=== PATIENT | male | born 1950 ===

== ENCOUNTER 2024-06-29 08:36 | Inpatient (IN) | payer OTHER ==
[~2024-06-29] VITALS: Ht 167.6 cm; Wt 90.7 kg
[2024-06-29 08:34] VITALS: BP 159/83
[~2024-06-29 08:36] MED LIST: COZAAR25 MG PO; HORIZANT300 MG PO; TAMS0.4C PO; ZOCOR20 MG PO
[2024-06-29 08:58] LABS: PH,URINE 5.5 (5.0-8.0); URINE APPEARANCE Clear; URINE BILIRRUBIN Negative (NEGATIVE); URINE BLOOD Moderate; URINE COLOR Yellow; URINE GLUCOSE Negative (NEGATIVE); URINE KETONE Negative (NEGATIVE); URINE LEUKOCYTE Negative; URINE NITRATE Negative; URINE PROTEIN Trace (NEGATIVE); URINE UROBILINOGEN 0.2 E.U./dl
[2024-06-29 08:59] LABS: URINE BACTERIA 89.3 uL (0.0-1933); URINE EPITHELIAL CELLS 6.8 uL (0.0-38.8); URINE RBC 130.5 uL (0.0-20.8); URINE WBC 14.5 uL (0.0-23.2)
[2024-06-29 09:00] LABS: HEMATOCRIT 31.8 % (39.0-48.0); HEMOGLOBIN 10.2 g/dL (13-16.00); MEAN CELL VOLUME 71.2 fL (80.0-100.00); MEAN CORPUSCULAR HGB CONC 32.2 g/dl (32.0-36.0); PLATELET COUNT 416 K/uL (150-450); RED BLOOD COUNT 4.46 M/uL (4.00-6.00); RED CELL DISTRIBUTION WIDTH 24.7 % (11.5-14.5)
[2024-06-29 09:28] LABS: PARTIAL THROMBOPLASTIN TIME 24.8 SECONDS (22.0-34.0); PROTHROMBIN TIME 10.9 SECONDS (9.0-11.5)
[2024-06-29 09:57] LABS: ALBUMIN 3.5 gm/dL (3.4-5.0); BILIRUBIN TOTAL 0.59 mg/dL (0.3-1.2); CALCIUM 9.2 mg/dL (8.5-10.1); CREATININE SERUM 0.88 mg/dL (0.70-1.30); GFR 84.2; GLOBULINA 3.7 G/DL (2.4-3.5); POTASSIUM 4.24 mEq/L (3.5-5.1); TOTAL PROTEIN 7.2 gm/dL (6.4-8.2)
[2024-06-29 10:20] LABS: URINE CAST 0.44 uL (0.0-1.40)
[2024-06-29 11:34] LABS: RH POSITIVE
[2024-07-05] MEDS ORDERED: CEFTRIAXONE SODIUM 2,000 MG VIAL ONE (12:32)
[2024-07-05] MEDS ORDERED: METRONIDAZOLE/SODIUM CHLORIDE 500 MG/100 ML PIGGYBACK IV ONE (12:32)
[2024-07-05] MEDS ORDERED: ENALAPRILAT DIHYDRATE 1.25 MG/ML VIAL IV PRN (15:15)
[2024-07-05] MEDS ORDERED: DEXTROSE 50 % IN WATER 0.5 G/ML DISP.SYRIN IV PRN (16:45)
[2024-07-05] MEDS ORDERED: MORPHINE SULFATE 4 MG/ML CARTRIDGE IV PRN (16:45)
[2024-07-05] MEDS ORDERED: ONDANSETRON HCL 2 MG/ML VIAL IV PRN (16:45)
[2024-07-05] MEDS ORDERED: OxyCODONE HCL 5 MG TABLET (ROXICODONE) PO PRN (16:45)
[2024-07-05] MEDS ORDERED: SIMVASTATIN 20 MG TABLET PO SCH (17:00)
[2024-07-05] MEDS ORDERED: POLYETHYLENE GLYCOL 3350 17 GM BLIST.PACK PO SCH (17:00)
[2024-07-05] MEDS ORDERED: GABAPENTIN 300 MG CAPSULE PO SCH (17:00)
[2024-07-05] MEDS ORDERED: MORPHINE SULFATE 4 MG/ML VIAL IV ONE ×2 (18:00→18:30)
[2024-07-05] MEDS ORDERED: ENALAPRILAT DIHYDRATE 1.25 MG/ML VIAL IV ONE (18:50)
[2024-07-05] MEDS ORDERED: ACETAMINOPHEN 500 MG GEL..CAP PO SCH (20:00)
[2024-07-05] MEDS ORDERED: MEPERIDINE HCL 25 MG/ML AMPUL IV ONE (20:15)
[2024-07-05] MEDS ORDERED: hydrALAZINE HCL 20 MG VIAL ONE (20:15)
[2024-07-05] MEDS ORDERED: TAMSULOSIN HCL 0.4 MG CAP PO SCH (21:00)
[2024-07-05] MEDS ORDERED: FAMOTIDINE/PF 20 MG/2 ML VIAL IV PUSH SCH (21:00)
[2024-07-05] MEDS ORDERED: FAMOTIDINE/PF 20 MG/2 ML VIAL ONE (21:37)
[2024-07-05 23:50] LABS: ALBUMIN 3.1 gm/dL (3.4-5.0); CALCIUM 9.3 mg/dL (8.5-10.1); CREATININE SERUM 0.89 mg/dL (0.70-1.30); GFR 83.11; MAGNESIUM 2.1 mg/dL (1.8-2.4); PHOSPHOROUS 3.5 mg/dL (2.5-4.9); POTASSIUM 3.97 mEq/L (3.5-5.1)
[2024-07-06 00:02] LABS: HEMATOCRIT 33.1 % (39.0-48.0); HEMOGLOBIN 10.5 g/dL (13-16.00); MEAN CELL VOLUME 72.8 fL (80.0-100.00); MEAN CORPUSCULAR HGB CONC 31.6 g/dl (32.0-36.0); PLATELET COUNT 456 K/uL (150-450); RED BLOOD COUNT 4.55 M/uL (4.00-6.00); RED CELL DISTRIBUTION WIDTH 23.7 % (11.5-14.5)
[2024-07-06 01:44] VITALS: BP 141/52; O2SAT 96
[2024-07-06 07:30] VITALS: BP 184/72
[2024-07-06 08:38] VITALS: BP 184/72
[2024-07-06] MEDS ORDERED: LOSARTAN POTASSIUM 25 MG TABLET PO SCH (09:00)
[2024-07-06 09:02] LABS: HEMOGLOBIN 10.2 g/dL (13-16.00); MEAN CELL VOLUME 72.2 fL (80.0-100.00); MEAN CORPUSCULAR HGB CONC 31.8 g/dl (32.0-36.0); PLATELET COUNT 427 K/uL (150-450); RED BLOOD COUNT 4.44 M/uL (4.00-6.00); RED CELL DISTRIBUTION WIDTH 23.3 % (11.5-14.5)
[2024-07-06 10:11] LABS: ALBUMIN 2.9 gm/dL (3.4-5.0); CALCIUM 8.8 mg/dL (8.5-10.1); CREATININE SERUM 0.8 mg/dL (0.70-1.30); GFR 93.99; MAGNESIUM 2.1 mg/dL (1.8-2.4); PHOSPHOROUS 3.4 mg/dL (2.5-4.9); POTASSIUM 3.88 mEq/L (3.5-5.1)
[2024-07-06 14:50] VITALS: BP 156/72
[2024-07-06] MEDS ORDERED: ENOXAPARIN SODIUM 40 MG/0.4 ML SYRINGE SUBCUTANEO SCH (17:00)
[2024-07-06] MEDS ORDERED: AMINO ACIDS 1 EACH TABLET PO SCH (17:00)
[2024-07-06 23:57] VITALS: BP 169/78; O2SAT 95
[2024-07-07 07:54] VITALS: BP 159/90; O2SAT 92
[2024-07-07] MEDS ORDERED: ENOXAPARIN SODIUM 40 MG/0.4 ML SYRINGE SUBCUTANEO SCH (09:00)
[2024-07-07 11:53] VITALS: BP 159/81
[2024-07-07 16:10] VITALS: BP 179/97; O2SAT 97
[2024-07-08 00:27] VITALS: BP 144/73; O2SAT 98
[2024-07-08 08:53] VITALS: BP 137/79; O2SAT 97
[2024-07-08] MEDS ORDERED: NEURONTIN300 MG PO (11:26)
[2024-07-08] MEDS ORDERED: TYLENOL ARTHRI650 MG PO (11:26)
[2024-07-08] MEDS ORDERED: INTESTINEX680 M1 PO (11:26)
== END 2024-07-08 17:20 | disposition home or self-care (01) | DRG 330 ==
LOC: O/R 07-05 06:35 → MEDJ 07-05 06:35 → EDBD 07-05 11:15 → SURH 07-05 11:15 → MEDJ 07-06 00:25 → SURG 07-06 17:55
PROVIDERS: ADMIT Surgery; ATTEND Surgery
PROC: 0DBL4ZZ Excision of Transverse Colon, Percutaneous Endoscopic Approach (ICD-10-PCS; 2024-07-05)
PROC: 07BB4ZZ Excision of Mesenteric Lymphatic, Percutaneous Endoscopic Approach (ICD-10-PCS; 2024-07-05)
PROC: 0DTF4ZZ Resection of Right Large Intestine, Percutaneous Endoscopic Approach (ICD-10-PCS; principal; 2024-07-05 13:00)
DX: C18.2 Malignant neoplasm of ascending colon (principal); C18.5 Malignant neoplasm of splenic flexure; K55.1 Chronic vascular disorders of intestine; D49.0 Neoplasm of unspecified behavior of digestive system; C61 Malignant neoplasm of prostate; R59.0 Localized enlarged lymph nodes; I10 Essential (primary) hypertension

== ENCOUNTER 2024-07-01 10:17 | Outpatient (CLI) | payer OTHER | END 2024-07-01 10:24 | disposition home or self-care (01) | LOC: TOM 10:17 | PROVIDERS: ATTEND Surgery | DX: C18.5 Malignant neoplasm of splenic flexure (principal); R59.0 Localized enlarged lymph nodes; K55.1 Chronic vascular disorders of intestine; C61 Malignant neoplasm of prostate | CPT/HCPCS: 71260; 74177; Q9965 ==